=== PATIENT | male | born 2000 | race Caucasian/White ===

== ENCOUNTER → 2024-06-13 | Day surgery (SDC) | payer BC ==
[~2024-06-13] MED LIST: Acetaminophen 325 MG Tab PO ONE; HYDROmorphone 0.5 MG/0.5 ML Syringe IVPUSH PRN; Lactated Ringers 1,000 ML ONE; Midazolam 1 MG/ML 2 ML SDV ONE; Ondansetron 4 MG/2 ML SDV IVPUSH PRN; Pregabalin 25 MG Cap PO ONE; Propofol 200 MG/20 ML SDV ONE; Sodium Chloride 0.9% 10 ML Syringe FLUSH PRN; Sodium Chloride 0.9% 10 ML Syringe FLUSH SCH; ceFAZolin 2 GM Vial ONE; ePHEDrine 50 MG/ML SDV ONE; fentaNYL 100 MCG/2 ML SDV IVPUSH PRN; fentaNYL 100 MCG/2 ML SDV ONE
[2024-06-13] MEDS: Lactated Ringers 1,000 ML IV SCH (09:15)
[2024-06-13] MEDS: oxyCODONE ER 10 MG TAB.ER PO ONE (10:19)
[2024-06-13] MEDS: Acetaminophen 325 MG Tab PO ONE (10:19)
[2024-06-13 10:55] LABS: INR 0.97; PROTHROMBIN TIME 10.3 SECONDS (9.7-12.0)
[2024-06-13 10:56] LABS: PTT,PARTIAL THROMBOPLSTIN TIME 27.8 SECONDS (21.7-31.4)
[2024-06-13] MEDS: Morphine 8 MG, EPINEPHrine 0.3 MG, Cefuroxime 750 MG, Ketorolac 30 MG, Sodium Chloride ... PRN (12:01)
[2024-06-13] MEDS: Tranexamic Acid 1,000 MG/10 ML Vial ONE (12:02)
[2024-06-13] MEDS: Vancomycin 1 GM SDV ONE (12:02)
[2024-06-13] MEDS: Acetaminophen/HYDROcodone 325-5 MG Tab PO ONE (14:25)
== END | disposition home or self-care (01) ==
LOC: JD.SDS 08:48
PROVIDERS: ATTEND Orthopaedic Surgery
DX: M16.11 Unilateral primary osteoarthritis, right hip (principal); Z79.899 Other long term (current) drug therapy; Z79.82 Long term (current) use of aspirin
CPT/HCPCS: 0055T; 27130; 36415; 73501; 85610; 85730; 97110; 97161; A9270; C1713; C1776; J0171; J0690; J0697; J1885; J2250; J2270; J2704; J3010; J3370; J7120; 01214; J3490